=== PATIENT | male | born 1965 | race Caucasian/White ===

== ENCOUNTER 2018-09-21 06:53 | Day surgery (SDC) | payer BC, MEDICAID ==
[2018-09-21] MEDS ORDERED: Midazolam 1 MG/ML 2 ML SDV ONE (07:21)
[2018-09-21] MEDS ORDERED: Propofol 200 MG/20 ML SDV ONE (07:21)
[2018-09-21] MEDS ORDERED: fentaNYL 100 MCG/2 ML SDV ONE (07:21)
[2018-09-21] MEDS ORDERED: Lactated Ringers 1,000 ML IV SCH (07:30)
--- NOTE | 2018-09-21 14:52 | OR ---
DATE OF PROCEDURE: 09/21/2018 PREOPERATIVE DIAGNOSIS: History of polyps. POSTOPERATIVE DIAGNOSES: Diverticulosis, a medium size transverse colon polyp, history of polyps. PROCEDURE PERFORMED: Colonoscopy to the cecum with biopsy and then snare cautery polypectomy of transverse colon polyp. SURGEON: Ravi Yuen MD. ANESTHESIA: IV anesthesia with monitored anesthesia care. INDICATION: This 53-year-old white male referred for a colonoscopy because of a history of colon polyps. He says his last colonoscopic exam was done five years ago. I counseled him for the procedure including risks and alternatives, and he gave his informed consent to proceed. DESCRIPTION OF PROCEDURE: The patient was placed in the left lateral decubitus position. IV anesthesia was administered by the Anesthesia Service. Time-out was held. A rectal exam was performed, which was unremarkable. The flexible video Olympus colonoscope was introduced through his anus, up his rectum, and out his colon all the way to the cecum. En route, we saw multiple left-sided diverticula. There was no bleeding or inflammation associated with them. Once the cecum was reached, the scope was slowly withdrawn examining the mucosa throughout. No mucosal abnormalities were noted until we reached the transverse colon. Here, a medium-sized polyp was seen. We initially biopsied it. It was too large to remove using this technique. A snare was passed about its base. It was elevated up away from the bowel wall and amputated. It was aspirated through the scope and captured in a polyp trap. The scope was withdrawn further with no other neoplastic lesions seen. The scope was retroflexed in the rectum with the distal rectum appearing unremarkable. The scope was straightened and removed. He tolerated the procedure well. Ravi Yuen MD /[id number] MTDD
== END 2018-09-21 09:20 | disposition home or self-care (01) ==
LOC: JP.SDS 06:53
PROVIDERS: ATTEND Surgery
DX: Z12.11 Encounter for screening for malignant neoplasm of colon (principal); D12.3 Benign neoplasm of transverse colon; K57.30 Diverticulosis of large intestine without perforation or abscess without bleeding; I10 Essential (primary) hypertension; K21.9 Gastro-esophageal reflux disease without esophagitis; R74.0 Nonspecific elevation of levels of transaminase and lactic acid dehydrogenase [LDH]; E11.9 Type 2 diabetes mellitus without complications; E66.01 Morbid (severe) obesity due to excess calories; Z86.010 Personal history of colon polyps; Z88.0 Allergy status to penicillin; Z68.39 Body mass index [BMI] 39.0-39.9, adult
CPT/HCPCS: 45385; J2250; J2704; J3010; J7120; 88305

== ENCOUNTER 2019-11-15 10:31 | Emergency (ER) | payer OTHER, MEDICAID ==
[2019-11-15] MEDS ORDERED: Ondansetron 4 MG/2 ML SDV IVPUSH ONE (10:44)
[2019-11-15] MEDS ORDERED: HYDROmorphone 1 MG/ML Syringe IVPUSH ONE (10:44)
[2019-11-15] MEDS ORDERED: Sodium Chloride 0.9% 1,000 ML IV SCH (10:45)
--- NOTE | 2019-11-15 11:58 | CT ---
Head wo Cont CLINICAL HISTORY: Blow to left side of head COMPARISON: None TECHNIQUE: Transverse scans were obtained from the base of the skull through the vertex without IV contrast on a multislice, multidetector CT scanner. Auto dosage reduction and iterative reconstruction techniques employed. FINDINGS: No focal abnormal parenchymal density is identified. There is no mass effect, hemorrhage, or extraaxial collection. The basal cisterns and sulci over the convexities are normal. The ventricles are normal. There is some soft tissue swelling over the left scalp IMPRESSION: No acute intracranial process
[2019-11-15] MEDS ORDERED: Bacitracin Oint 1 GM U/D Packet TOP ONE (12:04)
[2019-11-15] MEDS ORDERED: Alum Hydrox/Mag Hydrox/Simeth 15 ML, Lidocaine 2% 15 ML PO ONE ×2 (12:08)
--- NOTE | 2019-11-15 12:12 | CT ---
Cervical Spine wo Cont CLINICAL HISTORY: Fall TECHNIQUE: Multiple CT sections were taken through the cervical spine in the transaxial projection. Coronal and sagittal views were reconstructed. Images were viewed at bone as well as soft tissue windows on a digital workstation. Auto dosage reduction and iterative reconstruction techniques employed. FINDINGS: There is some reversal of the normal cervical lordosis which may indicate spasm. Vertebral body heights are maintained. There is mild diffuse disc space narrowing. Alignment is maintained. Prevertebral soft tissues are unremarkable. There is some calcification in the nuchal ligament IMPRESSION: Reversal of normal cervical lordosis suggests spasm Minimal degenerative disc changes No fracture or subluxation
--- NOTE | 2019-11-15 12:19 | CT ---
Max Facial Sinus wo Cont : TECHNIQUE: Axial tomographic images were obtained from the upper calvarium through the upper without contrast enhancement.. Auto dosage reduction and iterative reconstruction techniques employed. CLINICAL HISTORY: Facial trauma, fall FINDINGS: There is rightward deviation of the nasal septum. Nasal bones appear intact. Anterior nasal spine has a tiny focus of discontinuity. This could be congenital. Tiny chip fracture is not excluded. The bony orbits appear intact. Zygomatic arches are intact bilaterally. There are some minimal changes of chronic sinusitis mandible appears intact. IMPRESSION: Tiny density off the tip of the anterior nasal spine. This may be congenital but a tiny fracture is not excluded. Mild changes of chronic sinusitis
--- NOTE | 2019-11-15 12:22 | CR ---
Hand Comp Min 3V Rt CLINICAL HISTORY: Injury FINDINGS: There is soft tissue amputation of the tip of the index finger. No fracture is identified. No foreign body seen IMPRESSION: Soft tissue amputation of the tip of the index finger with no underlying fracture
--- NOTE | 2019-11-15 12:37 | EDM.PDOC ---
ED HPI GENERAL MEDICAL PROBLEM - General Chief Complaint: Upper Extremity Injury/Pain Stated Complaint: CUT FINGERS ON RIGHT HAND Time Seen by Provider: 11/15/19 11:00 Source of Information: Reports: Patient History Limitations: Reports: No Limitations - History of Present Illness INITIAL COMMENTS - FREE TEXT/NARRATIVE: pt caught his rt pointer and middle finger in a fan. The pointer he took part of the tip off and down to the nail On the middle finger he went down unto the nail. He did leave a flap of about 1/4 inch. Onset: Today, Sudden Duration: Hour(s): Location: Reports: Upper Extremity, Right Associated Symptoms: Reports: No Other Symptoms Right Finger-Index Pain Score (Numeric/FACES): 5 - Related Data Allergies Allergy/AdvReac Type Severity Reaction Status Date / Time Penicillins Allergy Other Verified 11/15/19 11:01 Home Meds: Home Meds Aspirin [Ecotrin EC] 81 mg PO DAILY 09/19/18 [History] Dulaglutide [Trulicity] 1.5 mg SQ WEEKLY 09/19/18 [History] Famotidine 20 mg PO DAILY 09/19/18 [History] Loratadine 10 mg PO DAILY 09/19/18 [History] Omeprazole 40 mg PO DAILY 09/19/18 [History] lisinopriL [Prinivil] 10 mg PO DAILY 09/19/18 [History] metFORMIN HCl [Metformin HCl] 1,000 mg PO BID 09/19/18 [History] Acetaminophen [Tylenol Extra Strength] 500 mg PO BEDTIME 11/15/19 [History] Liraglutide [Victoza 3-Gautam] 1.8 ml SQ BEDTIME 11/15/19 [History] Past Medical History HEENT History: Reports: None Cardiovascular History: Reports: High Cholesterol, Hypertension Gastrointestinal History: Reports: GERD Genitourinary History: Reports: None Musculoskeletal History: Reports: Arthritis Neurological History: Reports: None Endocrine/Metabolic History: Reports: Diabetes, Type II Hematologic History: Reports: None Immunologic History: Reports: None Oncologic (Cancer) History: Reports: None Dermatologic History: Reports: None - Infectious Disease History Infectious Disease History: Reports: Chicken Pox - Past Surgical History GI Surgical History: Reports: Appendectomy, Colonoscopy, Polypectomy Social & Family History - Tobacco Use Smoking Status *Q: Former Smoker Used Tobacco, but Quit: Yes Month/Year Tobacco Last Used: 1999 - Caffeine Use Caffeine Use: Reports: Coffee, Soda, Tea - Recreational Drug Use Recreational Drug Use: No Review of Systems - Review of Systems Review Of Systems: See Below Constitutional: Reports: No Symptoms Eyes: Reports: No Symptoms Ears: Reports: No Symptoms Nose: Reports: No Symptoms Mouth/Throat: Reports: No Symptoms Respiratory: Reports: No Symptoms Cardiovascular: Reports: No Symptoms Musculoskeletal: Reports: Other (injury to rt middle and rt pointer finger. ) Neurological: Reports: No Symptoms ED EXAM, GENERAL - Physical Exam Exam: See Below Free Text/Narrative:: pt caught his rt hand in a fan with injury to his rt middle and rt pointer finger. Exam Limited By: No Limitations General Appearance: Alert Extremities: Other (on the rt pointer finger he has a 1/4 inch flap off and this is completely gone. On the middle finger he has a flap that is hanging. This is also about 1/4 inch in length. ) Course - Vital Signs Last Recorded V/S: Last Vital Signs Temp 35.8 C L 11/15/19 10:58 Pulse 74 11/15/19 10:58 Resp 14 11/15/19 10:58 BP 162/73 H 11/15/19 10:58 Pulse Ox 93 L 11/15/19 10:58 - Orders/Labs/Meds Meds: Medications Discontinued Medications Generic Name Dose Route Start Last Admin Trade Name Andres PRN Reason Stop Dose Admin Bacitracin 1 dose 11/15/19 12:04 11/15/19 12:09 Bacitracin Oint 1 Gm TOP 11/15/19 12:05 1 dose ONETIME ONE Administration Al Hydroxide/Mg Hydroxide 15 0 ml 11/15/19 12:08 ml/ Lidocaine HCl 15 ml PO 11/15/19 12:09 ONETIME ONE Hydromorphone HCl 1 mg 11/15/19 10:44 Dilaudid IVPUSH 11/15/19 10:45 ONETIME ONE Sodium Chloride 1,000 mls @ 999 mls/hr 11/15/19 10:45 Normal Saline IV ASDIRECTED TOM Lidocaine HCl 5 ml 11/15/19 12:04 11/15/19 12:09 Xylocaine-Mpf 1% INJECT 11/15/19 12:05 5 ml ONETIME ONE Administration Ondansetron HCl 4 mg 11/15/19 10:44 Zofran IVPUSH 11/15/19 10:45 ONETIME ONE - Re-Assessments/Exams Free Text/Narrative Re-Assessment/Exam: 11/15/19 12:37 The area was cleansed well and the tip of the middle finger was infiltrated with lidocaine. The flap was tacked down for coverage. He had xrays and there was no bone involvement. The flap was tacked down with 6-0 prolene Departure - Departure Time of Disposition: 12:39 Disposition: Home, Self-Care 01 Clinical Impression: Laceration - Discharge Information Referrals: PCP,None [Primary Care Provider] - Care Plan Goals: appt with Dr Regan tomorrow, leave the present dressing on. norco 5/325 q6h prn for pain, keflex 500mg tid. Sepsis Event Note - Evaluation Sepsis Screening Result: No Definite Risk - Focused Exam Vital Signs: Vital Signs Temp Pulse Resp BP Pulse Ox 11/15/19 10:58 35.8 C L 74 14 162/73 H 93 L 11/15/19 10:57 35.8 C L 74 14 162/73 H 93 L Date Exam was Performed: 11/15/19 Time Exam was Performed: 12:31
== END 2019-11-15 12:47 | disposition home or self-care (01) ==
LOC: JP.ED 10:31
DX: S61.210A Laceration without foreign body of right index finger without damage to nail, initial encounter (principal); S61.212A Laceration without foreign body of right middle finger without damage to nail, initial encounter; I10 Essential (primary) hypertension; K21.9 Gastro-esophageal reflux disease without esophagitis; E11.9 Type 2 diabetes mellitus without complications; Z79.84 Long term (current) use of oral hypoglycemic drugs; Z87.891 Personal history of nicotine dependence; Z79.82 Long term (current) use of aspirin; Z79.899 Other long term (current) drug therapy; Z88.0 Allergy status to penicillin; W26.8XXA Contact with other sharp object(s), not elsewhere classified, initial encounter
CPT/HCPCS: 12001; 73130; 99283; J2001; 70450-26; 70486-26; 72125-26

== ENCOUNTER 2020-03-05 15:08 | Emergency (ER) | payer OTHER, MEDICAID ==
--- NOTE | 2020-03-05 15:39 | EDM.PDOC ---
ED HPI GENERAL MEDICAL PROBLEM - General Chief Complaint: Lower Extremity Injury/Pain Stated Complaint: INJURED L FOOT Time Seen by Provider: 03/05/20 15:15 Source of Information: Reports: Patient History Limitations: Reports: No Limitations - History of Present Illness INITIAL COMMENTS - FREE TEXT/NARRATIVE: This is a 54-year-old otherwise healthy male who presents with concerns of left foot pain after crush injury today. He was operating a piece of heavy equipment when a tree broke into the cab, crushing his left foot against the steering column. He is having quite a bit of pain over the dorsal and medial aspect of the foot. His sensation and motor function in the toes is intact. He is able to intermittently bear weight on the foot and was able to self extricate himself down out of the cab of the machine. He was wearing a heavy leather boot. He did not suffer any other traumatic injuries. He otherwise feels well. - Related Data Allergies Allergy/AdvReac Type Severity Reaction Status Date / Time Penicillins Allergy Other Verified 03/05/20 15:36 Home Meds: Home Meds RX: Aspirin [Ecotrin EC] 81 mg PO DAILY 09/19/18 [History] RX: Famotidine 20 mg PO DAILY 09/19/18 [History] RX: Loratadine 10 mg PO DAILY 09/19/18 [History] RX: Omeprazole 40 mg PO DAILY 09/19/18 [History] RX: lisinopriL [Prinivil] 10 mg PO DAILY 09/19/18 [History] metFORMIN HCl [Metformin HCl] 1,000 mg PO BID 09/19/18 [History] Acetaminophen [Tylenol Extra Strength] 500 mg PO BEDTIME PRN 11/15/19 [History] Liraglutide [Victoza 3-Gautam] 1.8 ml SQ BEDTIME 11/15/19 [History] sitaGLIPtin Phosphate [Januvia] 1 tab PO DAILY 03/05/20 [History] Past Medical History HEENT History: Reports: None Cardiovascular History: Reports: High Cholesterol, Hypertension Gastrointestinal History: Reports: GERD Genitourinary History: Reports: None Musculoskeletal History: Reports: Arthritis Neurological History: Reports: None Endocrine/Metabolic History: Reports: Diabetes, Type II Hematologic History: Reports: None Immunologic History: Reports: None Oncologic (Cancer) History: Reports: None Dermatologic History: Reports: None - Infectious Disease History Infectious Disease History: Reports: Chicken Pox - Past Surgical History GI Surgical History: Reports: Appendectomy, Colonoscopy, Polypectomy Social & Family History - Caffeine Use Caffeine Use: Reports: Coffee, Soda, Tea Review of Systems - Review of Systems Review Of Systems: See Below Constitutional: Reports: No Symptoms Eyes: Reports: No Symptoms Ears: Reports: No Symptoms Nose: Reports: No Symptoms Mouth/Throat: Reports: No Symptoms Respiratory: Reports: No Symptoms Cardiovascular: Reports: No Symptoms GI/Abdominal: Reports: No Symptoms Genitourinary: Reports: No Symptoms Musculoskeletal: Reports: Foot Pain Skin: Reports: No Symptoms Neurological: Reports: No Symptoms Psychiatric: Reports: No Symptoms ED EXAM, GENERAL - Physical Exam Exam: See Below Exam Limited By: No Limitations General Appearance: Alert, No Apparent Distress Ears: Normal External Exam Nose: Normal Inspection, Normal Mucosa Throat/Mouth: Normal Inspection Head: Atraumatic, Normocephalic Neck: Normal Inspection Respiratory/Chest: No Respiratory Distress Cardiovascular: Regular Rate, Rhythm GI/Abdominal: Soft, No Distention Back Exam: Normal Inspection Extremities: Normal Inspection, Other (left foot is without brusing, swelling, or deformity. Diffuse pain over the dorsal midfoot and medial midfoot.) Neurological: Alert, Oriented Psychiatric: Normal Affect, Normal Mood Skin Exam: Warm, Dry Course - Vital Signs Last Recorded V/S: Last Vital Signs Temp 36.2 C 03/05/20 15:41 Pulse 84 03/05/20 15:41 Resp 16 03/05/20 15:41 BP 129/101 H 03/05/20 15:41 Pulse Ox 96 03/05/20 15:41 - Re-Assessments/Exams Free Text/Narrative Re-Assessment/Exam: 54-year-old presents with left foot pain after sustaining a crush injury from a tree earlier today while operating heavy equipment. On exam he has some diffuse tenderness over the dorsum and medial part of his foot. No other trauma noted. He is able to intermittently weight-bear. X-rays without evidence of fracture. We again put him in a walking boot and see if he is comfortable with this, otherwise may need crutches with plan to weight bear as tolerated. We use OTC medications for pain relief. We have provided him with information for orthopedics to schedule follow-up plan and if his continues to have pain in the foot towards the end of this week. 03/05/20 17:05 Departure - Departure Time of Disposition: 17:07 Disposition: Home, Self-Care 01 Clinical Impression: Left foot pain - Discharge Information Instructions: Crutch Use, Adult, [id number], Foot Pain Referrals: Kt Llanos MD [Primary Care Provider] - Forms: ED Department Discharge Additional Instructions: We did not find any evidence of a fractured bone in your evaluation today. As discussed you may still have ligamentous injury or a fracture which is not evident on x-ray. You will need to use the boot and/or crutches to weight-bear on your left foot only as tolerated, meaning you should not have any pain when you walk. If you are still having pain in the foot towards the end of this week we recommend that you call the orthopedic clinic to arrange follow-up as you may need further work-up. Please use Tylenol and ibuprofen for pain. Thank you for allowing us to care for you today. Sepsis Event Note (ED) - Focused Exam Vital Signs: Vital Signs Temp Pulse Resp BP Pulse Ox 03/05/20 15:41 36.2 C 84 16 129/101 H 96 03/05/20 15:12 36.2 C 84 16 129/101 H 96
--- NOTE | 2020-03-05 16:58 | CRLCR ---
Indication: Left foot crushed by tree Technique: Three views Comparison: None Findings: Bones: No definite evidence of fracture. There is enthesopathic calcification at the Achilles insertion as well as the proximal plantar fascia. Enthesopathic calcification also at the lateral margin of the 5th proximal phalangeal base. 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 Joint spaces: Unremarkable. Soft tissues: Mild soft tissue swelling. Dictated by Pollo Flor MD @ Mar 05 2020 4:52PM Signed by Dr. Pollo Flor @ Mar 05 2020 4:56PM
== END 2020-03-05 17:27 | disposition home or self-care (01) ==
LOC: JP.ED 15:08
DX: M79.672 Pain in left foot (principal); I10 Essential (primary) hypertension; K21.9 Gastro-esophageal reflux disease without esophagitis; E11.9 Type 2 diabetes mellitus without complications; Z88.0 Allergy status to penicillin; Z90.49 Acquired absence of other specified parts of digestive tract; Z79.84 Long term (current) use of oral hypoglycemic drugs; Z79.82 Long term (current) use of aspirin; Z79.899 Other long term (current) drug therapy
CPT/HCPCS: 73630-LT; 99283-25

== ENCOUNTER 2021-10-07 07:03 | Day surgery (SDC) | payer BC, MEDICAID ==
[2021-10-07] MEDS ORDERED: Propofol 200 MG/20 ML SDV ONE ×2 (07:16→09:01)
[2021-10-07] MEDS ORDERED: fentaNYL 100 MCG/2 ML SDV ONE (07:16)
[2021-10-07] MEDS ORDERED: Midazolam 1 MG/ML 2 ML SDV ONE (07:16)
[2021-10-07] MEDS ORDERED: Dextrose 5%-Lactated Ringers 1,000 ML IV SCH (07:45)
== END 2021-10-07 11:00 | disposition home or self-care (01) ==
LOC: JP.SDS 07:03
PROVIDERS: ATTEND Family Medicine
DX: Z12.11 Encounter for screening for malignant neoplasm of colon (principal); D12.4 Benign neoplasm of descending colon; D12.5 Benign neoplasm of sigmoid colon; D12.3 Benign neoplasm of transverse colon; I10 Essential (primary) hypertension; E11.9 Type 2 diabetes mellitus without complications; E78.5 Hyperlipidemia, unspecified; K21.9 Gastro-esophageal reflux disease without esophagitis; Z88.0 Allergy status to penicillin; Z90.49 Acquired absence of other specified parts of digestive tract; Z98.890 Other specified postprocedural states; Z79.899 Other long term (current) drug therapy
CPT/HCPCS: 88305; J2250; J2704; J3010; J7121

== ENCOUNTER 2024-03-21 14:45 | Emergency (ER) | payer OTHER, MEDICAID ==
[2024-03-21] MEDS: Bacitracin Oint 1 GM U/D Packet TOP ONE (18:05)
== END 2024-03-21 18:20 | disposition home or self-care (01) ==
LOC: JP.ED 14:45
DX: S81.812A Laceration without foreign body, left lower leg, initial encounter (principal); I10 Essential (primary) hypertension; K21.9 Gastro-esophageal reflux disease without esophagitis; E11.9 Type 2 diabetes mellitus without complications; Z88.0 Allergy status to penicillin; Z79.82 Long term (current) use of aspirin; Z79.899 Other long term (current) drug therapy; Z90.49 Acquired absence of other specified parts of digestive tract; W29.3XXA Contact with powered garden and outdoor hand tools and machinery, initial encounter
CPT/HCPCS: 12004; 99283